=== PATIENT | male | born 1980 | race African-American/Black ===

== ENCOUNTER 2016-07-14 08:45 | Emergency (ER) | payer OTHER ==
[2016-07-14] MEDS ORDERED: KETOROLAC 60 MG/2 ML VIAL IM ONE (10:36)
== END 2016-07-14 11:31 | disposition home or self-care (01) ==
LOC: ER 08:45
DX: S82.035A Nondisplaced transverse fracture of left patella, initial encounter for closed fracture (principal); M25.462 Effusion, left knee; W18.40XA Slipping, tripping and stumbling without falling, unspecified, initial encounter; Y92.009 Unspecified place in unspecified non-institutional (private) residence as the place of occurrence of the external cause; F17.210 Nicotine dependence, cigarettes, uncomplicated
CPT/HCPCS: 96372